=== PATIENT | female | born 1965 | race Caucasian/White ===

== ENCOUNTER → 2023-10-08 | Day surgery (SDC) | payer OTHER ==
[~2023-10-08] MED LIST: DIPHENHYDRAMINE HCL 50 MG/ML VIAL 1ML IV ONE; MIDAZOLAM HCL 2 MG/2 ML VIAL IV ONE; ONDANSETRON HCL 2 MG/ML VIAL IV ONE; fentaNYL CITRATE 50 MCG/ML AMPUL IV PUSH ONE
== END | disposition home or self-care (01) ==
LOC: AMB-ENDOS 07:09
PROVIDERS: ATTEND Colon & Rectal Surgery
DX: K63.5 Polyp of colon (principal); K57.30 Diverticulosis of large intestine without perforation or abscess without bleeding; D12.0 Benign neoplasm of cecum